=== PATIENT | male | born 1995 | race Caucasian/White ===

== ENCOUNTER 2024-06-24 08:15 | Outpatient (CLI) | payer OTHER ==
[2024-06-24 11:32] LABS: COL ADP 137 SECONDS (56-102); COL EPI 195 SECONDS (82-175)
== END 2024-06-24 08:20 | disposition home or self-care (01) ==
LOC: LAB 08:15
PROVIDERS: ATTEND Orthopaedic Surgery
DX: I10 Essential (primary) hypertension (principal); Z76.89 Persons encountering health services in other specified circumstances; D68.8 Other specified coagulation defects